=== PATIENT | male | born 1990 | race Caucasian/White ===

== ENCOUNTER 2021-06-05 03:14 | Emergency (ER) | payer OTHER ==
[~2021-06-05] VITALS: Ht 177.8 cm; Wt 72.6 kg
[2021-06-05] MEDS ORDERED: NAPROXEN500 MG PO (07:12)
== END 2021-06-05 07:21 | disposition home or self-care (01) ==
LOC: ER 03:14
DX: S00.83XA Contusion of other part of head, initial encounter (principal); W22.8XXA Striking against or struck by other objects, initial encounter; Y93.89 Activity, other specified; Y92.59 Other trade areas as the place of occurrence of the external cause; R51.9 Headache, unspecified